=== PATIENT | female | born 1970 | race Caucasian/White ===

== ENCOUNTER 2016-05-02 15:25 | Emergency (ER) | payer OTHER ==
[~2016-05-02] VITALS: Ht 160 cm; Wt 131.0 kg
[~2016-05-02 15:25] MED LIST: CTLP20T PO; HYDR-3702 PO; LEVO100T7 PO; LEVO88TA4 PO; LORA1TAB PO; PARO20TA57 PO; PRM25T PO
[2016-05-02] MEDS ORDERED: SODIUM CHLORIDE FLUSH 3 ML SYR IV PRN (16:10)
[2016-05-02] MEDS ORDERED: ONDANSETRON 2 MG/ML (Z0FRAN) 2 ML VIAL IV ONE (16:30)
[2016-05-02] MEDS ORDERED: HYDROmorphone 1 MG/ML (DILAUDID) SYRINGE IV ONE ×3 (16:30→20:40)
[2016-05-02] MEDS: SODIUM CHLORIDE FLUSH 10 ML SYR IV PRN ×2 (17:10→20:44)
[2016-05-02 17:16] LABS: BASOPHILS % (AUTO) 0 % (0-2); EOSINOPHILS # (AUTO) 0.1 10^3uL; EOSINOPHILS % (AUTO) 1 % (0-4); LYMPHOCYTES # (AUTO) 2.3 X10^3; MEAN CORPUSCULAR HEMOGLOBIN 28.9 PG (26.0-34.0); MEAN CORPUSCULAR HGB CONC 33.7 g/dL (31.0-37.0); MEAN CORPUSCULAR VOLUME 86 FL (80-100); MEAN PLATELET VOLUME 9.7 FL (6.0-9.5); MONOCYTES # (AUTO) 0.7 X10^3; MONOCYTES % (AUTO) 8 % (3-11); NEUTROPHILS % (AUTO) 62 % (51-67); PLATELET COUNT 305 10^3uL (150-450); WHITE BLOOD COUNT 8.02 10^3uL (4.0-11.0)
[2016-05-02 17:22] LABS: GLUCOSE, URINE (UA) Negative (Negative); LEUKOCYTE ESTERASE ,URINE Negative (Negative); UROBILINOGEN,URINE 0.2 mg/dL (0.2-1.0)
[2016-05-02 17:27] LABS: ALBUMIN 4.1 g/dL (3.4-5.0); TOTAL PROTEIN 7.5 g/dL (6.4-8.5)
[2016-05-02 17:59] LABS: BILIRUBIN,URINE 1+ (Negative); CLARITY,URINE Slightly Cloudy; COLOR,URINE Dark Yellow
--- NOTE | 2016-05-02 18:01 | Diagnostic Imaging Report ---
INDICATION: Left lower quadrant pain. Patient has had hysterectomy. EXAMINATION: Acute abdomen series. FINDINGS: The lungs are clear. There is no evidence of free air under the diaphragm. There is a normal volume of stool within the colon. No distended bowel loops are seen. There are no air-fluid levels. No pathologic calcifications are demonstrated. No bony abnormalities. No organomegaly. IMPRESSION: Normal abdomen series. Dictated by: Dictated on workstation # [id number]
[2016-05-02 18:10] LABS: RBC,URINE None Seen /HPF; URINE CENTRIFUGED VOLUME 10 mL
--- NOTE | 2016-05-02 19:00 | NUR ---
Report given to Arcelia BONILLA.
--- NOTE | 2016-05-02 20:26 | Diagnostic Imaging Report ---
PROCEDURE: CT abdomen and pelvis with contrast. TECHNIQUE: Multiple contiguous axial images were obtained through the abdomen and pelvis after administration of intravenous contrast. INDICATION: Left lower quadrant pain. History of diverticulitis in the past. Comparison with 02/01/2015. FINDINGS: The lung bases are clear. The liver appears normal. The gallbladder and bile ducts are normal. The pancreas and spleen are normal. The adrenal glands are normal. The kidneys appear normal. There is normal enhancement of the abdominal organs and vessels. No evidence of aortic aneurysm. No intra-abdominal adenopathy of pathologic size. The stomach appears normal. Small bowel shows normal caliber. Colon shows normal stool and gas pattern. The appendix is not identified though there are no appendicoliths or dilated structures near the cecum. The sigmoid colon does show diffuse bowel wall thickening in the midportion with multiple diverticuli. There is adjacent mesenteric edema. No free air or free fluid. No loculated fluid collections. The bladder is empty. There are no pelvic masses. The uterus is absent. IMPRESSION: 1. Findings are consistent with acute diverticulitis in the sigmoid colon. No evidence of free air or abscess at this time. 2. The remainder of the abdomen appears normal. Dictated by: Dictated on workstation # [id number]
[2016-05-02] MEDS ORDERED: METR500T PO (21:03)
[2016-05-02] MEDS ORDERED: CPR500T PO (21:03)
[2016-05-02] MEDS ORDERED: CIPROFLOXACIN (CIPRO) 500 MG TABLET PO ONE (21:05)
[2016-05-02] MEDS ORDERED: metroNIDAZOLE 500 MG (FLAGYL) TABLET PO ONE (21:05)
[2016-05-02] MEDS ORDERED: ONDANSETRON 2 MG/ML (Z0FRAN) 2 ML VIAL ONE (21:07)
[2016-05-02] MEDS ORDERED: ED- HYDROcodone/ACETAMINOPHEN 5MG/325MG (NORCO) 6 TABLETS/BTL PO ONE (21:50)
[2016-05-02 22:06] VITALS: BP 104/60
== END 2016-05-02 21:54 | disposition home or self-care (01) ==
LOC: ED 15:27
DX: K57.92 Diverticulitis of intestine, part unspecified, without perforation or abscess without bleeding (principal); R10.32 Left lower quadrant pain; M54.89 Other dorsalgia
CPT/HCPCS: 36415; 74022; 74177; 80053; 81003; 81015; 83690; 85025; J1170; J2405; J7030; Q9967; 96361; 96374; 96375; 96376; 99283; 99284